=== PATIENT | female | born 1960 | race American Indian/Alaskan Native ===

== ENCOUNTER 2019-04-02 08:04 | Day surgery (SDC) | payer MEDICARE ==
[2019-04-02] MEDS ORDERED: LIDOCAINE MPF (2%) 20 MG/1 ML VIAL 5 ML ONE (09:00)
[2019-04-02] MEDS ORDERED: SODIUM CHLORIDE 0.9% 1000 ML 1,000 ML ONE (09:07)
--- NOTE | 2019-04-02 09:15 | Anesthesia Consultation ---
<ANTONIO FRYE - Last Filed: 04/02/19 09:12> Anesthesia Consult and Med Hx Date of service: 04/02/19 - Airway Anesthetic Teeth Evaluation: Good ROM Head & Neck: Adequate Mental/Hyoid Distance: Adequate Mallampati Class: Class III Intubation Access Assessment: Possibly Difficult - Pre-Operative Health Status ASA Pre-Surgery Classification: ASA3 Proposed Anesthetic Plan: MAC - Pulmonary Hx Smoking: No Hx Asthma: No Hx Respiratory Symptoms: No SOB: No COPD: No Home Oxygen Therapy: No Hx Pneumonia: No Hx Sleep Apnea: Yes - Cardiovascular System Hx Hypertension: Yes Hx Coronary Artery Disease: Yes ( [place] 2007 approx) Hx Heart Attack/AMI: Yes (stents in the heart) Hx Angina: No Hx Percutaneous Transluminal Coronary Angioplasty (PTCA): No Hx Pacemaker: No Hx Internal Defibrillator: Yes (Most be combo Pacemaker and AICD, EkG shows pacing at 60) Hx Valvular Heart Disease: Yes (TR) Hx Heart Murmur: Yes - Central Nervous System Hx Neuromuscular Disorder: No Hx Seizures: No CVA: Yes Hx Back Pain: Yes Hx Psychiatric Problems: No - Gastrointestinal Hx Ulcer: Yes (STOMACH AND INTESTIONAL) Hx Gastroesophageal Reflux Disease: Yes (MILD) - Endocrine Hx Renal Disease: No Hx End Stage Renal Disease: No Hx Cirrhosis: No Hx Liver Disease: No Hx Insulin Dependent Diabetes: Yes (ON SLIDING SCALE) Hx Non-Insulin Dependent Diabetes: No Hx Thyroid Disease: Yes Hx Hypothyroidism: Yes Hx Hyperthyroidism: No - Hematic Hx Anemia: Yes Hx Sickle Cell Disease: No - Other Systems Hx Alcohol Use: No Hx Substance Use: No Hx Cancer: No Hx Obesity: Yes <JOAN FLORES - Last Filed: 04/02/19 12:39> Anesthesia Consult and Med Hx - Additional Comments Anesthesia Medical History Comments: Received most recent cardiology notes and clearance from 01/2019. EF 25%, severe pulmonary HTN noted. OK to hold ASA/plavix x7 days (patient held for 4 days).
--- NOTE | 2019-04-02 09:16 | Anesthesia Day of Surgery ---
Anesthesia Day of Surgery - Day of Surgery Patient Examined: Yes Patient H&P Reviewed: Yes Patient is NPO: Yes Cardiac Clearance: Yes
[2019-04-02] MEDS ORDERED: SODIUM CHLORIDE 0.9% 1000 ML 1,000 ML IV SCH (09:30)
[2019-04-02] MEDS ORDERED: ETOMIDATE 20 MG/10 ML INJ IV ONE (10:32)
--- NOTE | 2019-04-02 11:35 | Short Stay Summary ---
Short Stay Documentation Date of service: 04/02/19 Narrative H&P: Pt is a 58 yo aaf with h/o JACLYN, cirrhosis, and intermittent hematochezia. See clinic note for further details (no changes) - History Past Medical History: other (see clinic note) Past Surgical History: Other (see clinic note) Social history: other (see clinic note) - Allergies and Medications Current Medications: Allergies Sulfa (Sulfonamide Antibiotics) Allergy (Unknown, Verified 07/17/13 11:06) Rash SWEET GUM POLLEN Allergy (Intermediate, Uncoded 12/01/18 14:51) Unknown Home Medications Medication Instructions Recorded Confirmed Last Taken Type Ipratropium [place] 1 tab PO DAILY 03/24/13 12/02/18 09/11/14 History Folic Acid 1 mg PO QDAY 03/25/13 12/02/18 09/11/14 History Insulin Lispro [HumaLOG VIAL] 30 units SQ PRN PRN 03/25/13 12/02/18 09/11/14 History Potassium 20 meq PO BID 03/25/13 12/02/18 09/11/14 History Furosemide [Lasix TAB] 80 mg PO BID tablet 09/14/14 12/02/18 Unknown Rx Insulin Regular, Human [HumuLIN R] 0 units SUB-Q ACHS units 09/14/14 12/02/18 Unknown Rx Calcium Carbonate/Vitamin D3 1 tab PO DAILY #30 tablet 10/31/14 12/02/18 Unknown Rx [Calcium 600-Vit D3 200 Tablet] Colesevelam [Welchol] 625 mg PO BID #60 tablet 10/31/14 12/02/18 Unknown Rx Hydroxychloroquine [Plaquenil] 200 mg PO BID #30 tablet 10/31/14 12/02/18 Unkno wn Rx Isosorb Dinit/Hydralazine [Bidil 1 each PO DAILY #60 tablet 10/31/14 12/02/18 Unknown Rx 20/37.5MG] Levothyroxine [Synthroid] 75 mcg PO DAILY #30 tablet 10/31/14 12/02/18 Unknown Rx Omeprazole [PriLOSEC] 20 mg PO PRN PRN #30 capsule. 10/31/14 12/02/18 Unknown Rx Sertraline [Zoloft] 100 mg PO DAILY #30 tablet 10/31/14 12/02/18 Unknown Rx azaTHIOprine [Azasan] 50 mg PO DAILY #60 tablet 10/31/14 12/02/18 Unknown Rx carvediloL [Coreg] 25 mg PO BID #60 tablet 10/31/14 12/02/18 Unknown Rx hydrOXYzine HCL [Atarax] 25 mg PO DAILY #30 tablet 10/31/14 12/02/18 Unknown Rx lisinopriL [Zestril TAB] 40 mg PO QDAY #30 tablet 10/31/14 12/02/18 Unknown Rx predniSONE [Deltasone] 5 mg PO QDAY #30 tablet 10/31/14 12/02/18 Unknown Rx ALBUTEROL Inhaler (OR & NICU) 2 puff INHALATION DAILY 12/02/18 12/02/18 Unknown History Aldactone 25 mg PO DAILY 12/02/18 12/02/18 Unknown History Ambien 5 mg PO HS 12/02/18 12/02/18 Unknown History Apresoline TAB 50 mg PO DAILY 12/02/18 12/02/18 Unknown History Aspirin BABY CHEW TAB 81 mg PO DAILY 12/02/18 12/02/18 Unknown History Entresto 24 - 26 mg 1 tab PO DAILY 12/02/18 12/02/18 Unknown History Farxiga 5 mg PO DAILY 12/02/18 12/02/18 Unknown History Metolazone 2.5 mg PO DAILY 12/02/18 12/02/18 Unknown History Pantoprazole 40 mg PO DAILY 12/02/18 12/02/18 Unknown History Plaquenil 200 mg PO DAILY 12/02/18 12/02/18 Unknown History Plavix 75 mg PO DAILY 12/02/18 12/02/18 Unknown History Pravastatin 20 mg PO DAILY 12/02/18 12/02/18 Unknown History Sitagliptin Phos/Metformin HCl 1 tab PO DAILY 12/02/18 12/02/18 Unknown History Zanaflex 4mg CAP 1 tab PO DAILY 12/02/18 12/02/18 Unknown History Active Medications Sodium Chloride (Nacl 0.9% 1000 Ml) 1,000 mls @ 50 mls/hr IV DIRECT RODOLFO - Physical exam General appearance: no acute distress Lungs: Clear to auscultation Heart: Regular rate Gastrointestinal: normal, obese - Brief post op/procedure progress note Date of procedure: 04/02/19 Pre-op diagnosis: JACLYN, cirrhosis, gi bleed Post-op diagnosis: other (gastritis; large sessile polyp in cecum) Procedure: 1. EGD 2. Colonoscopy with cecal polyp s/p EMR Anesthesia: MAC Findings: EGD: gastritis, hiatal hernia, grade I EV Surgeon: CELIA RAMACHANDRAN Estimated blood loss: minimal Pathology: list (Jar A - cecal polyp) Specimen disposition: to lab Condition: stable - Disposition Condition at discharge: Good Disposition: [id number] TO HOME OR SELFCARE Short Stay Discharge Plan Follow up with: ROBIN REYEZ MD [Primary Care Provider] - 7 Days
--- NOTE | 2019-04-02 11:38 | Operative Report ---
Operative Report Operative Report: Esophagogastroduodenoscopy Procedure Note Date of procedure: 04/02/2019 Endoscopist: Washington Vann Pre-op diagnosis/indication: Cirrhosis, Iron deficiency anemia Post-op diagnosis: Gastritis, hiatal hernia, Grade I esophageal varices MEDICATIONS: MAC COMPLICATIONS: No immediate complications ESTIMATED BLOOD LOSS:None DESCRIPTION OF PROCEDURE: After consent was obtained, the patient was placed in the left lateral decubitis position. The olympus endoscope was inserted into the patient's mouth under direct vision and advanced to the 2nd portion of the duodenum without difficulty. The patient tolerated the procedure well. The views of the mucosa were good. The patient's vital signs were monitored continuously throughout the procedure. FINDINGS: There were small (grade I) esophageal varices in the distal esophagus without high risk bleeding stigmata. There was a non-obstructing, widely patent B ring at the GE junction. Moderate sized hiatal hernia. Mild erythematous mucosa in the antrum of the stomach. Otherwise the stomach appeared normal. The duodenum appeared normal. IMPRESSION: 1. Grade I esophageal varices without bleeding stigmata 2. Mild gastritis 3. Non-obstructing/widely patent B ring in lower esophagus RECOMMENDATIONS: -continue current medications -follow-up in GI clinic as scheduled
--- NOTE | 2019-04-02 11:44 | Operative Report ---
Operative Report Operative Report: Colonoscopy Procedure Note with submucosal injection, polypectomy and clip placement Date of procedure: 04/02/2019 Endoscopist: Washington Vann Pre-op diagnosis/indication: Iron deficiency anemia, Hematochezia Post-op diagnosis: Large sessile polyp in cecum; diverticulosis MEDICATIONS: MAC COMPLICATIONS: No immediate complications ESTIMATED BLOOD LOSS: Minimal DESCRIPTION OF PROCEDURE: After consent was obtained, the patient was placed in the left lateral decubitis position. The olympus colonoscope was inserted into the rectum under direct vision, and advanced to the cecum without difficulty. The quality of prep was fair. The patient tolerated the procedure well. The patient's vital signs were monitored continuously throughout the procedure. FINDINGS: There was an ~2 cm flat/sessile polyp in the cecum. Preparation was made for resection. Saline was injected to raise the polyp. The polyp was removed en bloc with hot snare polypectomy. Three clips were placed to close the mucosal defect. Moderate to severe diverticulosis in the left side of the colon. Internal hemorrhoids were visualized on retroflexion view. IMPRESSION: 1. Large sessile polyp in the cecum s/p endoscopic mucosal resection as above. 2. Diverticulosis RECOMMENDATIONS: -follow-up pathology -can restart aspirin tomorrow and plavix in 5 days if no signs of bleeding; avoid all other nsaid's -high fiber diet daily -repeat colonoscopy for surveillance in 3-6 months based on pathology results -follow-up in GI clinic in 1 month or as previously scheduled
--- NOTE | 2019-04-02 13:02 | Post Anesthesia Evaluation ---
- Post Anesthesia Evaluation Patient Participated: Yes Airway Patent: Yes Stable Respiratory Function: Yes Nausea/Vomiting: No Temp > 96.8F: Yes Pain Manageable: Yes Adequeate Hydration: Yes Anesthesia Complications: No Other Comments: Recover RN spoke with [employer] rep regarding AICD since magnet was placed during procedure. Per rep, device returns to regular programmed settings settings immediately once magnet is removed. No need to reprogram. Patient d/c'd to home.
[2019-04-02 13:16] VITALS: BP 120/66
== END 2019-04-02 08:05 | disposition home or self-care (01) ==
LOC: GIO 08:04
PROVIDERS: ATTEND Internal Medicine Gastroenterology
DX: D50.9 Iron deficiency anemia, unspecified (principal); D12.0 Benign neoplasm of cecum; K92.1 Melena; K57.30 Diverticulosis of large intestine without perforation or abscess without bleeding; K64.8 Other hemorrhoids; K74.69 Other cirrhosis of liver; K44.9 Diaphragmatic hernia without obstruction or gangrene; K29.70 Gastritis, unspecified, without bleeding; I85.00 Esophageal varices without bleeding; E11.65 Type 2 diabetes mellitus with hyperglycemia; E03.9 Hypothyroidism, unspecified; I11.0 Hypertensive heart disease with heart failure; I50.9 Heart failure, unspecified; E78.5 Hyperlipidemia, unspecified; I25.10 Atherosclerotic heart disease of native coronary artery without angina pectoris; G47.30 Sleep apnea, unspecified; K21.9 Gastro-esophageal reflux disease without esophagitis; E66.9 Obesity, unspecified; M19.90 Unspecified osteoarthritis, unspecified site; F32.9 Major depressive disorder, single episode, unspecified; F41.9 Anxiety disorder, unspecified; Z88.2 Allergy status to sulfonamides; Z79.899 Other long term (current) drug therapy; Z79.4 Long term (current) use of insulin; Z98.49 Cataract extraction status, unspecified eye; Z95.5 Presence of coronary angioplasty implant and graft; Z68.34 Body mass index [BMI] 34.0-34.9, adult; Z98.891 History of uterine scar from previous surgery; Z98.890 Other specified postprocedural states; Z95.0 Presence of cardiac pacemaker; Z86.73 Personal history of transient ischemic attack (TIA), and cerebral infarction without residual deficits
CPT/HCPCS: 43235; 45381; 45385; 82962; 88305; J7030

== ENCOUNTER 2019-04-03 12:36 | Inpatient (IN) | payer MEDICARE ==
[2019-04-03] MEDS ORDERED: MORPHINE 4 MG/1 ML INJ IV ONE (13:52)
--- NOTE | 2019-04-03 14:04 | Gastroenterology Consultation ---
History of Present Illness - Reason for Consult Consult date: 04/03/19 GI Bleed Requesting physician: ALEX SKELTON - History of Present Illness The patient is a 58 yo female who underwent an EGD/colonoscopy 04/[address] Vann for mild iron deficiency and a hx of ESLD. She had minimal varices but had significant L-sided diverticular disease as well as a 2cm cecum polyp that was removed with a hot snare and clipped afterwards. She did well yesterday, but woke up this AM with multiple bouts of hematochezia. She has fatigue and pre- syncope, but no tamar hypotension in the ER. She estimates about 5 BMs so far today. She has cramps in the BLQ when about to have a stool, but no constant pain, and no fevers, emesis, or abdominal distention. The patient has ASA and plavix on her med profile, but is not aware of that, and doesn't think she is on either in the last few days (but has over 15 medications listed, and does not appear to know any of them). Past History Past Medical History: acute NM (2006 per old records), anemia, CAD (Hx of NM/stents; Cards is Georgie Landeros), COPD, diabetes, GERD, heart failure (AICD), hypertension, hyperlipidemia, liver disease, other (Obesity, ARACELI) Past Surgical History: Other (PM/AICD) Medications and Allergies Allergies Allergy/AdvReac Type Severity Reaction Status Date / Time Sulfa (Sulfonamide Allergy Unknown Rash Verified 07/17/13 11:06 Antibiotics) SWEET GUM POLLEN Allergy Intermediate Unknown Uncoded 12/01/18 14:51 Home Medications Medication Instructions Recorded Confirmed Last Taken Type Ipratropium [place] 1 tab PO DAILY 03/24/13 12/02/18 09/11/14 History Folic Acid 1 mg PO QDAY 03/25/13 12/02/18 09/11/14 History Insulin Lispro [HumaLOG VIAL] 30 units SQ PRN PRN 03/25/13 12/02/18 09/11/14 History Potassium 20 meq PO BID 03/25/13 12/02/18 09/11/14 History Furosemide [Lasix TAB] 80 mg PO BID tablet 09/14/14 12/02/18 Unknown Rx Insulin Regular, Human [HumuLIN R] 0 units SUB-Q ACHS units 09/14/14 12/02/18 Unknown Rx Calcium Carbonate/Vitamin D3 1 tab PO DAILY #30 tablet 10/31/14 12/02/18 Unknown Rx [Calcium 600-Vit D3 200 Tablet] Colesevelam [Welchol] 625 mg PO BID #60 tablet 10/31/14 12/02/18 Unknown Rx Hydroxychloroquine [Plaquenil] 200 mg PO BID #30 tablet 10/31/14 12/02/18 Unknown Rx Isosorb Dinit/Hydralazine [Bidil 1 each PO DAILY #60 tablet 10/31/14 12/02/18 Unknown Rx 20/37.5MG] Levothyroxine [Synthroid] 75 mcg PO DAILY #30 tablet 10/31/14 12/02/18 Unknown Rx Omeprazole [PriLOSEC] 20 mg PO PRN PRN #30 capsule. 10/31/14 12/02/18 Unknown Rx Sertraline [Zoloft] 100 mg PO DAILY #30 tablet 10/31/14 12/02/18 Unknown Rx azaTHIOprine [Azasan] 50 mg PO DAILY #60 tablet 10/31/14 12/02/18 Unknown Rx carvediloL [Coreg] 25 mg PO BID #60 tablet 10/31/14 12/02/18 Unknown Rx hydrOXYzine HCL [Atarax] 25 mg PO DAILY #30 tablet 10/31/14 12/02/18 Unknown Rx lisinopriL [Zestril TAB] 40 mg PO QDAY #30 tablet 10/31/14 12/02/18 Unknown Rx predniSONE [Deltasone] 5 mg PO QDAY #30 tablet 10/31/14 12/02/18 Unknown Rx ALBUTEROL Inhaler (OR & NICU) 2 puff INHALATION DAILY 12/02/18 12/02/18 Unknown History Aldactone 25 mg PO DAILY 12/02/18 12/02/18 Unknown History Ambien 5 mg PO HS 12/02/18 12/02/18 Unknown History Apresoline TAB 50 mg PO DAILY 12/02/18 12/02/18 Unknown History Aspirin BABY CHEW TAB 81 mg PO DAILY 12/02/18 12/02/18 Unknown History Entresto 24 - 26 mg 1 tab PO DAILY 12/02/18 12/02/18 Unknown History Farxiga 5 mg PO DAILY 12/02/18 12/02/18 Unknown History Metolazone 2.5 mg PO DAILY 12/02/18 12/02/18 Unknown History Pantoprazole 40 mg PO DAILY 12/02/18 12/02/18 Unknown History Plaquenil 200 mg PO DAILY 12/02/18 12/02/18 Unknown History Plavix 75 mg PO DAILY 12/02/18 12/02/18 Unknown History Pravastatin 20 mg PO DAILY 12/02/18 12/02/18 Unknown History Sitagliptin Phos/Metformin HCl 1 tab PO DAILY 12/02/18 12/02/18 Unknown History Zanaflex 4mg CAP 1 tab PO DAILY 12/02/18 12/02/18 Unknown History Review of Systems - Review of Systems All systems: negative (as noted in the HPI.) Exam - Constitutional Vital Signs: Temp Pulse Resp BP Pulse Ox 66 21 127/75 100 04/03/19 13:37 04/03/19 13:37 04/03/19 13:37 04/03/19 13:37 General appearance: no acute distress - EENT Eyes: PERRL, EOM intact ENT: hearing intact, poor dentition, no thrush - Neck Neck: supple, normal ROM - Respiratory Respiratory effort: normal Respiratory: bilateral: CTA - Cardiovascular Rhythm: regular Heart Sounds: Present: S1 & S2 Extremities: no ischemia, No edema - Gastrointestinal General gastrointestinal: Present: soft, tender (Subjective guarding but no peritoneal signs, distention, or pain when distracted), non-distended - Integumentary Integumentary: Present: clear, warm - Neurologic Neurological: alert and oriented x3 Assessment and Plan - Patient Problems (1) GI bleed Status: Acute Plan to address problem: - EGD/Colon 04/02 with Grade I esophageal varices, colon tics on L side, and 2cm polyp in cecum (removed; endoclip x 3). - Unclear if patient continuing ASA and plavix, but also has mild ESLD (platelets 135 in clinic and INR 1.1 in clinic). - Likely post-polypectomy bleed, though tics possible. - Would recommend empiric FFP, and protonix IV (Q24, not gtt since no ulcer or severe varices). - CTA ordered. - Given cirrhosis, and size of mucosal defect, fell the best option at this point, if bleeding in the cecum, would be IR/embolization, and we have contacted Interventional Radiology. - Would recommend transfusion if hct < 25. - Platelet transfusion may be of benefit if less than 100K, though less value than FFP. - If vascular intervention unsuccessful, then repeat endoscopy, or surgical intervention, will be needed; however, it may resolve on its own. - All anticoagulation should be stopped.
--- NOTE | 2019-04-03 14:07 | Emergency Department Report ---
HPI - General Chief Complaint: GI Bleed Time Seen by Provider: 04/03/19 13:23 - HPI HPI: 58 yo ROSSY Goodman presents to the emergency department via EMS from home with the complaint of abdominal pain and heavy rectal bleeding since late morning. She had an outpatient colonsocopy yesterday done by Dr Vann here at [facility] secondary to some hematochezia she had been having. She had a few polyps removed including a cecal polyp and was discharged home. She had no complaints the rest of the day yesterday and says she woke up this AM feeling fine. However, the symptoms began a few hours after waking. She complains of 10/10 generalized abd pain. She has been having rectal bleeding with clots that has soaked her clothes and the gurney. She has a past medical history that also includes hypertension, Lupus, DM. She has not taken anything for her symptoms prior to presentation today. ED Past Medical Hx - Past Medical History Previous Medical History?: Yes Hx Hypertension: Yes Hx Heart Attack/AMI: Yes (stents in the heart) Hx Congestive Heart Failure: Yes Hx Diabetes: Yes Hx GERD: Yes Hx Liver Disease: No Hx Renal Disease: No Hx Sickle Cell Disease: No Hx Arthritis: Yes (IN ALL JOINTS/NO PAIN NOTED AT THIS TIME) Hx Seizures: No Hx Asthma: No Hx COPD: No Additional medical history: Lupus - Surgical History Past Surgical History?: Yes Hx Pacemaker: No Hx Internal Defibrillator: Yes (Most be combo Pacemaker and AICD, EkG shows pacing at 60) Additional Surgical History: - Social History Smoking Status: Never Smoker Substance Use Type: None - Medications Home Medications: Home Medications Medication Instructions Recorded Confirmed Last Taken Type Ipratropium [place] 1 tab PO DAILY 03/24/13 12/02/18 09/11/14 History Folic Acid 1 mg PO QDAY 03/25/13 12/02/18 09/11/14 History Insulin Lispro [HumaLOG VIAL] 30 units SQ PRN PRN 03/25/13 12/02/18 09/11/14 History Potassium 20 meq PO BID 03/25/13 12/02/18 09/11/14 History Furosemide [Lasix TAB] 80 mg PO BID tablet 09/14/14 12/02/18 Unknown Rx Insulin Regular, Human [HumuLIN R] 0 units SUB-Q ACHS units 09/14/14 12/02/18 Unknown Rx Calcium Carbonate/Vitamin D3 1 tab PO DAILY #30 tablet 10/31/14 12/02/18 Unknown Rx [Calcium 600-Vit D3 200 Tablet] Colesevelam [Welchol] 625 mg PO BID #60 tablet 10/31/14 12/02/18 Unknown Rx Hydroxychloroquine [Plaquenil] 200 mg PO BID #30 tablet 10/31/14 12/02/18 Unknown Rx Isosorb Dinit/Hydralazine [Bidil 1 each PO DAILY #60 tablet 10/31/14 12/02/18 Unknown Rx 20/37.5MG] Levothyroxine [Synthroid] 75 mcg PO DAILY #30 tablet 10/31/14 12/02/18 Unknown Rx Omeprazole [PriLOSEC] 20 mg PO PRN PRN #30 capsule. 10/31/14 12/02/18 Unknown Rx Sertraline [Zoloft] 100 mg PO DAILY #30 tablet 10/31/14 12/02/18 Unknown Rx azaTHIOprine [Azasan] 50 mg PO DAILY #60 tablet 10/31/14 12/02/18 Unknown Rx carvediloL [Coreg] 25 mg PO BID #60 tablet 10/31/14 12/02/18 Unknown Rx hydrOXYzine HCL [Atarax] 25 mg PO DAILY #30 tablet 10/31/14 12/02/18 Unknown Rx lisinopriL [Zestril TAB] 40 mg PO QDAY #30 tablet 10/31/14 12/02/18 Unknown Rx predniSONE [Deltasone] 5 mg PO QDAY #30 tablet 10/31/14 12/02/18 Unknown Rx ALBUTEROL Inhaler (OR & NICU) 2 puff INHALATION DAILY 12/02/18 12/02/18 Unknown History Aldactone 25 mg PO DAILY 12/02/18 12/02/18 Unknown History Ambien 5 mg PO HS 12/02/18 12/02/18 Unknown History Apresoline TAB 50 mg PO DAILY 12/02/18 12/02/18 Unknown History Aspirin BABY CHEW TAB 81 mg PO DAILY 12/02/18 12/02/18 Unknown History Entresto 24 - 26 mg 1 tab PO DAILY 12/02/18 12/02/18 Unknown History Farxiga 5 mg PO DAILY 12/02/18 12/02/18 Unknown History Metolazone 2.5 mg PO DAILY 12/02/18 12/02/18 Unknown History Pantoprazole 40 mg PO DAILY 12/02/18 12/02/18 Unknown History Plaquenil 200 mg PO DAILY 12/02/18 12/02/18 Unknown History Plavix 75 mg PO DAILY 12/02/18 12/02/18 Unknown History Pravastatin 20 mg PO DAILY 12/02/18 12/02/18 Unknown History Sitagliptin Phos/Metformin HCl 1 tab PO DAILY 12/02/18 12/02/18 Unknown History Zanaflex 4mg CAP 1 tab PO DAILY 12/02/18 12/02/18 Unknown History ED Review of Systems ROS: Stated complaint: RECTAL BLEED Other details as noted in HPI Comment: All other systems reviewed and negative Constitutional: denies: chills, fever Eyes: denies: eye pain, vision change ENT: denies: ear pain, throat pain Respiratory: denies: cough, shortness of breath Cardiovascular: denies: chest pain, palpitations Gastrointestinal: abdominal pain, hematochezia. denies: vomiting Genitourinary: denies: dysuria, discharge Musculoskeletal: denies: back pain, arthralgia Skin: denies: rash, lesions Neurological: denies: headache, weakness Physical Exam - Physical Exam Vital Signs: Vital Signs 04/03/19 13:37 Pulse Rate 66 Respiratory 21 Rate Blood Pressure 127/75 [Right] O2 Sat by Pulse 100 Oximetry Physical Exam: GENERAL: The patient is well-developed well-nourished. HEENT: Normocephalic. Atraumatic. Patient has moist mucous membranes. EYES: Extraocular motions are intact. NECK: Supple. Trachea is midline. CHEST/LUNGS: Clear to auscultation. There is no respiratory distress noted. HEART/CARDIOVASCULAR: Regular. There is no tachycardia. ABDOMEN: Abdomen is soft. There is generalized abdominal tenderness to palpation. No guarding. Patient has normal bowel sounds. Obese habitus. SKIN: Skin is warm and dry. NEURO: The patient is awake, alert, and oriented. The patient is cooperative. The patient has no focal neurologic deficits. The patient has normal speech. MUSCULOSKELETAL: There is no tenderness or deformity. There is no evidence of acute injury. RECTAL: There is a moderate to large amount of hematochezia. ED Course Vital Signs 04/03/19 13:37 Pulse Rate 66 Respiratory 21 Rate Blood Pressure 127/75 [Right] O2 Sat by Pulse 100 Oximetry - Consultations Consultation #1: I spoke with the stamping bench die maker credit and loan collections supervisor, Dr. moreno, as soon as patient came to the emergency department. Dr. Moreno came down to the ER and saw the patient. He has requested for a CT angiography of the abdomen and pelvis to be done and if there is a focus of hemorrhage then the vascular surgeon, Dr. Her, may go in for embolization. He has also requested for the patient received 2 units of fresh frozen plasma. 04/03/19 17:49 ED Medical Decision Making - Lab Data Result diagrams: 04/03/19 13:50 04/03/19 13:50 - Radiology Data Radiology results: report reviewed CT angio abdomen pelvis INDICATION / CLINICAL INFORMATION: GI bleed s/p colonoscopy. TECHNIQUE: Axial CT images were obtained after injection of Omnipaque 300, 100 cc IV contrast using CTA protocol. 3 plane MIP / 3D reconstructions were produced. All CT scans at this location are performed using CT dose reduction for ALARA by means of automated exposure control. COMPARISON: None available. CTA abdomen: The aorta is normal in caliber. The mesenteric vessels and renal arteries are widely patent. No active GI bleeding site is identified Evaluation the parenchymal organs demonstrates a cirrhotic configuration of the liver and benign-appearing renal cysts. The spleen is not enlarged. Ascites is moderate. Negative for localized fluid collection. Calcified gallstones are noted. Endoscopic clips are noted at the proximal transverse colon where there is localized thickening. No active bleeding site is identified. CTA PELVIS: The iliac vessels are widely patent. No pelvic bleeding site is identified. Pelvic fluid is moderate. Sigmoid diverticula are noninflamed. IMPRESSION: 1. Negative for active bleeding site or significant vascular stenosis. 2. Cirrhosis with moderate ascites. 3. Endoscopic clips localized thickening at present biopsy site at the proximal transverse colon. 4. Calcified gallstones. - Medical Decision Making This patient presents to the emergency department with abdominal pain and heavy rectal bleeding with hematochezia one day after having a colonoscopy with polypectomy. Patient does have a moderate to large amount of rectal bleeding seen. She has abdominal tenderness to palpation of the abdomen is soft and nondistended. Patient's labs came back showing a hemoglobin of 8.6 which is decreased from her baseline. GI asked for 2 units of fresh frozen plasma and vascular has ordered 2 units of packed red blood cells for transfusion. CT angiography of the abdomen and pelvis does not show any area of current hemorrhage. She will be admitted to the hospital for further evaluation and treatment and was accepted for admission by the hospitalist, Dr. Ronquillo. - Differential Diagnosis diverticulosis, status post polypectomy, malignancy Critical Care Time: Yes Critical care time in (mins) excluding proc time.: 31 Critical care attestation.: If time is entered above; I have spent that time in minutes in the direct care of this critically ill patient, excluding procedure time. Critical care time was spent on this patient and doing her initial evaluation, multiple re-evaluations, ordering an interpretation of labs and imaging, ordering of fresh frozen plasma for transfusion, consultation and discussion with gastroenterology and vascular surgery, multiple discussions with the patient and her family. Critical Care Time: 31 minutes ED Disposition Clinical Impression: Symptomatic anemia GI bleed Qualifiers: GI bleed type/associated pathology: unspecified gastrointestinal hemorrhage type Qualified Code(s): K92.2 - Gastrointestinal hemorrhage, unspecified Anemia Qualifiers: Other causes of anemia: acute posthemorrhagic Qualified Code(s): D62 - Acute posthemorrhagic anemia Abdominal pain Qualifiers: Abdominal location: generalized Qualified Code(s): R10.84 - Generalized abdominal pain Disposition: DC-09 OP ADMIT IP TO THIS HOSP Is pt being admited?: Yes Condition: Fair Referrals: SINA LOPEZ,NILA ROMANO MD [Primary Care Provider] - 3-5 Days Forms: Accompanied Note Time of Disposition: 16:46
[2019-04-03 14:16] LABS: Basophils % (Auto) 0.3 % (0.0-1.8); Eosinophils # (Auto) 0.1 K/mm3 (0.0-0.4); Eosinophils % (Auto) 1.5 % (0.0-4.3); Hematocrit 26.9 % (30.3-42.9); Hemoglobin 8.9 gm/dl (10.1-14.3); Lymphocytes % (Auto) 14.7 % (13.4-35.0); Mean Corpuscular HGB Conc 33 % (30-34); Mean Corpuscular Volume 95 fl (79-97); Monocytes # (Auto) 0.4 K/mm3 (0.0-0.8); Monocytes % (Auto) 6.3 % (0.0-7.3); Platelet Count 141 K/mm3 (140-440); Red Blood Count 2.83 M/mm3 (3.65-5.03); Red Cell Distribution Width 14.8 % (13.2-15.2)
[2019-04-03] MEDS ORDERED: SODIUM CHLORIDE 0.9% 500 ML 500 ML IV ONE (14:18)
[2019-04-03 14:27] LABS: INR 1.2 (0.87-1.13)
[2019-04-03 14:28] LABS: Partial Thromboplastin Time 26.9 Sec. (24.2-36.6)
[2019-04-03 14:35] LABS: BUN/Creatinine Ratio 16; Blood Urea Nitrogen 16 mg/dL (7-17); Calcium 8.3 mg/dL (8.4-10.2); Hemolysis Index 7
[2019-04-03 14:39] LABS: Alanine Aminotransferase 12 units/L (7-56); Albumin 3.1 g/dL (3.9-5)
[2019-04-03 14:40] LABS: Bilirubin,Direct < 0.2 mg/dL (0-0.2)
[2019-04-03] MEDS ORDERED: SODIUM CHLORIDE 0.9% 500 ML 500 ML IV NR (14:54)
[2019-04-03] MEDS ORDERED: ONDANSETRON 4 MG/2 ML INJ IV ONE (15:18)
[2019-04-03] MEDS ORDERED: HEPARIN/NS 5000 UNIT/500ML 0 ML IR ONE (16:04)
[2019-04-03] MEDS ORDERED: SODIUM CHLORIDE 0.9% 500 ML 0 ML ONE (16:04)
[2019-04-03] MEDS ORDERED: LIDOCAINE 1%/EPINEPHRINE 1:100,000 VIAL (20 ML) INFILTRATI ONE (16:04)
--- NOTE | 2019-04-03 16:50 | Consultation ---
History of Present Illness - Reason for Consult Consult date: 04/03/19 GI bleed - History of Present Illness Patient with a history of cirrhosis who underwent a colonoscopy yesterday with removal of a 2 cm sessile polyp from the cecum. Post procedure, the patient did well. She was restarted on her anticoagulation and 11:00 this morning, the patient experienced a lower GI bleeding. She presented to the emergency department with active bleeding which has now stopped. Patient was taken to the CT scan with a CTA in both arterial and delayed phases to determine if there was additional. No additional bleeding was identified. Patient is mentally intact with no specific complaints. Past History Past Medical History: acute [place] (2006 per old records), anemia, CAD (Hx of [place]/stents; Cards is Georgie Landeros), COPD, diabetes, GERD, heart failure (AI CD), hypertension, hyperlipidemia, liver disease, other (Obesity, ARACELI, cirrhosis) Past Surgical History: Other (PM/AICD) Medications and Allergies Allergies Allergy/AdvReac Type Severity Reaction Status Date / Time Sulfa (Sulfonamide Allergy Unknown Rash Verified 07/17/13 11:06 Antibiotics) SWEET GUM POLLEN Allergy Intermediate Unknown Uncoded 12/01/18 14:51 Home Medications Medication Instructions Recorded Confirmed Last Taken Type Ipratropium [place] 1 tab PO DAILY 03/24/13 12/02/18 09/11/14 History Folic Acid 1 mg PO QDAY 03/25/13 12/02/18 09/11/14 History Insulin Lispro [HumaLOG VIAL] 30 units SQ PRN PRN 03/25/13 12/02/18 09/11/14 History Potassium 20 meq PO BID 03/25/13 12/02/18 09/11/14 History Furosemide [Lasix TAB] 80 mg PO BID tablet 09/14/14 12/02/18 Unknown Rx Insulin Regular, Human [HumuLIN R] 0 units SUB-Q ACHS units 09/14/14 12/02/18 Unknown Rx Calcium Carbonate/Vitamin D3 1 tab PO DAILY #30 tablet 10/31/14 12/02/18 Unknown Rx [Calcium 600-Vit D3 200 Tablet] Colesevelam [Welchol] 625 mg PO BID #60 tablet 10/31/14 12/02/18 Unknown Rx Hydroxychloroquine [Plaquenil] 200 mg PO BID #30 tablet 10/31/14 12/02/18 Unknown Rx Isosorb Dinit/Hydralazine [Bidil 1 each PO DAILY #60 tablet 10/31/14 12/02/18 Unknown Rx 20/37.5MG] Levothyroxine [Synthroid] 75 mcg PO DAILY #30 tablet 10/31/14 12/02/18 Unknown Rx Omeprazole [PriLOSEC] 20 mg PO PRN PRN #30 capsule. 10/31/14 12/02/18 Unknown Rx Sertraline [Zoloft] 100 mg PO DAILY #30 tablet 10/31/14 12/02/18 Unknown Rx azaTHIOprine [Azasan] 50 mg PO DAILY #60 tablet 10/31/14 12/02/18 Unknown Rx carvediloL [Coreg] 25 mg PO BID #60 tablet 10/31/14 12/02/18 Unknown Rx hydrOXYzine HCL [Atarax] 25 mg PO DAILY #30 tablet 10/31/14 12/02/18 Unknown Rx lisinopriL [Zestril TAB] 40 mg PO QDAY #30 tablet 10/31/14 12/02/18 Unknown Rx predniSONE [Deltasone] 5 mg PO QDAY #30 tablet 10/31/14 12/02/18 Unknown Rx ALBUTEROL Inhaler (OR & NICU) 2 puff INHALATION DAILY 12/02/18 12/02/18 Unknown History Aldactone 25 mg PO DAILY 12/02/18 12/02/18 Unknown History Ambien 5 mg PO HS 12/02/18 12/02/18 Unknown History Apresoline TAB 50 mg PO DAILY 12/02/18 12/02/18 Unknown History Aspirin BABY CHEW TAB 81 mg PO DAILY 12/02/18 12/02/18 Unknown History Entresto 24 - 26 mg 1 tab PO DAILY 12/02/18 12/02/18 Unknown History Farxiga 5 mg PO DAILY 12/02/18 12/02/18 Unknown History Metolazone 2.5 mg PO DAILY 12/02/18 12/02/18 Unknown History Pantoprazole 40 mg PO DAILY 12/02/18 12/02/18 Unknown History Plaquenil 200 mg PO DAILY 12/02/18 12/02/18 Unknown History Plavix 75 mg PO DAILY 12/02/18 12/02/18 Unknown History Pravastatin 20 mg PO DAILY 12/02/18 12/02/18 Unknown History Sitagliptin Phos/Metformin HCl 1 tab PO DAILY 12/02/18 12/02/18 Unknown History Zanaflex 4mg CAP 1 tab PO DAILY 12/02/18 12/02/18 Unknown History Active Meds: Active Medications Sodium Chloride (Nacl 0.9% 500 Ml) 500 mls @ 0 mls/hr IV ONCE NR Stop: 04/03/19 23:59 Review of Systems All systems: negative Exam - Constitutional Vitals: Temp Pulse Resp BP Pulse Ox 73 15 158/81 96 04/03/19 15:31 04/03/19 15:31 04/03/19 15:31 04/03/19 15:31 General appearance: Present: no acute distress - EENT Eyes: Present: EOM intact ENT: hearing intact - Neck Neck: Present: supple, normal ROM - Respiratory Respiratory effort: normal - Abdominal General gastrointestinal: Present: soft, distended - Rectal Rectal Exam: deferred - Integumentary Integumentary: Present: clear - Psychiatric Psychiatric: appropriate mood/affect, cooperative Results - Labs CBC & Chem 7: 04/03/19 13:50 04/03/19 13:50 Labs: Abnormal lab results 04/03/19 04/03/19 04/03/19 Range/Units 13:50 13:50 13:50 RBC 2.83 L (3.65-5.03) M/mm3 Hgb 8.9 L (10.1-14.3) gm/dl Hct 26.9 L (30.3-42.9) % Lymph # 1.0 L (1.2-5.4) K/mm3 Seg Neutrophils % 77.2 H (40.0-70.0) % PT 15.4 H (12.2-14.9) Sec. INR 1.20 H (0.87-1.13) Potassium 3.3 L (3.6-5.0) mmol/L Chloride 107.5 H (98-107) mmol/L Carbon Dioxide 20 L (22-30) mmol/L Glucose 105 H (65-100) mg/dL Calcium 8.3 L (8.4-10.2) mg/dL Albumin (3.9-5) g/dL Crossmatch 04/03/19 04/03/19 Range/Units 13:50 13:50 RBC (3.65-5.03) M/mm3 Hgb (10.1-14.3) gm/dl Hct (30.3-42.9) % Lymph # (1.2-5.4) K/mm3 Seg Neutrophils % (40.0-70.0) % PT (12.2-14.9) Sec. INR (0.87-1.13) Potassium (3.6-5.0) mmol/L Chloride (98-107) mmol/L Carbon Dioxide (22-30) mmol/L Glucose (65-100) mg/dL Calcium (8.4-10.2) mg/dL Albumin 3.1 L (3.9-5) g/dL Crossmatch See Detail - Imaging and Cardiology CT scan - abdomen: image reviewed CT scan - pelvis: image reviewed Assessment and Plan Following review of the patient's CT of the abdomen and pelvis and both arterial and delayed phases, no active bleeding was identified. Clinically, the patient is stable. She will be transfused 2 units of packed red blood cells given her significant cardiac history and lower GI bleed. Would recommend holding anticoagulation for several days prior to resumption. If there is recurrently bleeding, would recommend repeat CTA of the abdomen and pelvis and arterial and venous stasis at the time of bleeding.
--- NOTE | 2019-04-03 17:08 | Cat Scan Report ---
CT angio abdomen pelvis INDICATION / CLINICAL INFORMATION: GI bleed s/p colonoscopy. TECHNIQUE: Axial CT images were obtained after injection of Omnipaque 300, 100 cc IV contrast using CTA protocol . 3 plane MIP / 3D reconstructions were produced. All CT scans at this location are performed using C T dose reduction for ALARA by means of automated exposure control. COMPARISON: None available. CTA abdomen: The aorta is normal in caliber. The mesenteric vessels and renal arteries are widely pat ent. No active GI bleeding site is identified Evaluation the parenchymal organs demonstrates a cirrhotic configuration of the liver and benign-appe aring renal cysts. The spleen is not enlarged. Ascites is moderate. Negative for localized fluid collection. Calcified gallstones are noted. Endoscopic clips are noted at the proximal transverse colon where there is localized thickening. No a ctive bleeding site is identified. CTA PELVIS: The iliac vessels are widely patent. No pelvic bleeding site is identified. Pelvic fluid is moderate. Sigmoid diverticula are noninflamed. IMPRESSION: 1. Negative for active bleeding site or significant vascular stenosis. 2. Cirrhosis with moderate ascites. 3. Endoscopic clips localized thickening at present biopsy site at the proximal transverse colon. 4. Calcified gallstones. Signer Name: True Hernandez MD Signed: 04/03/2019 5:04 PM Workstation Name: [id number]
--- NOTE | 2019-04-04 00:32 | History and Physical Report ---
History of Present Illness Date of examination: 04/04/19 Date of admission: 04/03/19 16:46 Chief complaint: Lower GI bleed since yesterday History of present illness: Examined 58-year-old -[place] female with multiple medical problems including insulin-dependent diabetes hypothyroidism hypertension lupus and hyperlipidemia comes in for lower GI bleed from yesterday. Patient had colonoscopy and a polyp was removed and rectal discharge from the colonoscopy suite. Patient had lower GI bleeding in the past few weeks off and on. After the procedure patient continues to have mild to moderate bleeding-bright red blood and blood clots. Patient feels weak and lightheaded. No shortness of breath. No chest pain. Past Medical History Previous Medical History?: Yes Hypertension: Yes Heart Attack/AMI: Yes (stents in the heart) Congestive Heart Failure: Yes Diabetes: Yes GERD: Yes Arthritis: Yes (IN ALL JOINTS/NO PAIN NOTED AT THIS TIME) Additional medical history: Lupus Surgical History Past Surgical History?: Yes Pacemaker: No Internal Defibrillator: Yes (Most be combo Pacemaker and AICD, EkG shows pacing at 60) Additional Surgical History: Social History Smoking Status: Never Smoker Substance Use Type: None Family history Htn Schedule a wrist - Medicationsecondary to change in her management will calls Home Medications: Home Medications Medication Instructions Recorded Confirmed Last Taken Type Ipratropium Kake 1 tab PO DAILY 03/24/13 12/02/18 09/11/14 History Folic Acid 1 mg PO QDAY 03/25/13 12/02/18 09/11/14 History Insulin Lispro [HumaLOG VIAL] 30 units SQ PRN PRN 03/25/13 12/02/18 09/11/14 History Potassium 20 meq PO BID 03/25/13 12/02/18 09/11/14 History Furosemide [Lasix TAB] 80 mg PO BID tablet 09/14/14 12/02/18 Unknown Rx Insulin Regular, Human [HumuLIN R] 0 units SUB-Q ACHS units 09/14/14 12/02/18 Unknown Rx Calcium Carbonate/Vitamin D3 1 tab PO DAILY #30 tablet 10/31/14 12/02/18 Unknown Rx [Calcium 600-Vit D3 200 Tablet] Colesevelam [Welchol] 625 mg PO BID #60 tablet 10/31/14 12/02/18 Unknown Rx Hydroxychloroquine [Plaquenil] 200 mg PO BID #30 tablet 10/31/14 12/02/18 Unknown Rx Isosorb Dinit/Hydralazine [Bidil 1 each PO DAILY #60 tablet 10/31/14 12/02/18 Unknown Rx 20/37.5MG] Levothyroxine [Synthroid] 75 mcg PO DAILY #30 tablet 10/31/14 12/02/18 Unknown Rx Omeprazole [PriLOSEC] 20 mg PO PRN PRN #30 capsule. 10/31/14 12/02/18 Unknown Rx Sertraline [Zoloft] 100 mg PO DAILY #30 tablet 10/31/14 12/02/18 Unknown Rx azaTHIOprine [Azasan] 50 mg PO DAILY #60 tablet 10/31/14 12/02/18 Unknown Rx carvediloL [Coreg] 25 mg PO BID #60 tablet 10/31/14 12/02/18 Unknown Rx hydrOXYzine HCL [Atarax] 25 mg PO DAILY #30 tablet 10/31/14 12/02/18 Unknown Rx lisinopriL [Zestril TAB] 40 mg PO QDAY #30 tablet 10/31/14 12/02/18 Unknown Rx predniSONE [Deltasone] 5 mg PO QDAY #30 tablet 10/31/14 12/02/18 Unknown Rx ALBUTEROL Inhaler (OR & NICU) 2 puff INHALATION DAILY 12/02/18 12/02/18 Unknown History Aldactone 25 mg PO DAILY 12/02/18 12/02/18 Unknown History Ambien 5 mg PO HS 12/02/18 12/02/18 Unknown History Apresoline TAB 50 mg PO DAILY 12/02/18 12/02/18 Unknown History Aspirin BABY CHEW TAB 81 mg PO DAILY 12/02/18 12/02/18 Unknown History Entresto 24 - 26 mg 1 tab PO DAILY 12/02/18 12/02/18 Unknown History Farxiga 5 mg PO DAILY 12/02/18 12/02/18 Unknown History Metolazone 2.5 mg PO DAILY 12/02/18 12/02/18 Unknown History Pantoprazole 40 mg PO DAILY 12/02/18 12/02/18 Unknown History Plaquenil 200 mg PO DAILY 12/02/18 12/02/18 Unknown History Plavix 75 mg PO DAILY 12/02/18 12/02/18 Unknown History Pravastatin 20 mg PO DAILY 12/02/18 12/02/18 Unknown History Sitagliptin Phos/Metformin HCl 1 tab PO DAILY 12/02/18 12/02/18 Unknown History Zanaflex 4mg CAP 1 tab PO DAILY 12/02/18 12/02/18 Unknown History Review of Systems ROS: Stated complaint: RECTAL BLEED Other details as noted in HPI Comment: All other systems reviewed and negative Constitutional: denies: chills, fever Eyes: denies: eye pain, vision change ENT: denies: ear pain, throat pain Respiratory: denies: cough, shortness of breath Cardiovascular: denies: chest pain, palpitations Gastrointestinal: abdominal pain, hematochezia. denies: vomiting Genitourinary: denies: dysuria, discharge Musculoskeletal: denies: back pain, arthralgia Skin: denies: rash, lesions Neurological: denies: headache, weakness 14 point review of systems done-otherwise negative. Past History Past Medical History: acute [place] (2006 per old records), anemia, CAD (Hx of [place]/stents; Cards is Georgie Landeros), COPD, diabetes, GERD, heart failure (AICD), hypertension, hyperlipidemia, liver disease, other (Obesity, ARACELI, cirr hosis) Past Surgical History: Other (PM/AICD) Medications and Allergies Allergies Allergy/AdvReac Type Severity Reaction Status Date / Time Sulfa (Sulfonamide Allergy Unknown Rash Verified 07/17/13 11:06 Antibiotics) SWEET GUM POLLEN Allergy Intermediate Unknown Uncoded 12/01/18 14:51 Home Medications Medication Instructions Recorded Confirmed Last Taken Type Ipratropium Kake 1 tab PO DAILY 03/24/13 12/02/18 09/11/14 History Folic Acid 1 mg PO QDAY 03/25/13 12/02/18 09/11/14 History Insulin Lispro [HumaLOG VIAL] 30 units SQ PRN PRN 03/25/13 12/02/18 09/11/14 History Potassium 20 meq PO BID 03/25/13 12/02/18 09/11/14 History Furosemide [Lasix TAB] 80 mg PO BID tablet 09/14/14 12/02/18 Unknown Rx Insulin Regular, Human [HumuLIN R] 0 units SUB-Q ACHS units 09/14/14 12/02/18 Unknown Rx Calcium Carbonate/Vitamin D3 1 tab PO DAILY #30 tablet 10/31/14 12/02/18 Unknown Rx [Calcium 600-Vit D3 200 Tablet] Colesevelam [Welchol] 625 mg PO BID #60 tablet 10/31/14 12/02/18 Unknown Rx Hydroxychloroquine [Plaquenil] 200 mg PO BID #30 tablet 10/31/14 12/02/18 Unknown Rx Isosorb Dinit/Hydralazine [Bidil 1 each PO DAILY #60 tablet 10/31/14 12/02/18 Unknown Rx 20/37.5MG] Levothyroxine [Synthroid] 75 mcg PO DAILY #30 tablet 10/31/14 12/02/18 Unknown Rx Omeprazole [PriLOSEC] 20 mg PO PRN PRN #30 capsule. 10/31/14 12/02/18 Unknown Rx Sertraline [Zoloft] 100 mg PO DAILY #30 tablet 10/31/14 12/02/18 Unknown Rx azaTHIOprine [Azasan] 50 mg PO DAILY #60 tablet 10/31/14 12/02/18 Unknown Rx carvediloL [Coreg] 25 mg PO BID #60 tablet 10/31/14 12/02/18 Unknown Rx hydrOXYzine HCL [Atarax] 25 mg PO DAILY #30 tablet 10/31/14 12/02/18 Unknown Rx lisinopriL [Zestril TAB] 40 mg PO QDAY #30 tablet 10/31/14 12/02/18 Unknown Rx predniSONE [Deltasone] 5 mg PO QDAY #30 tablet 10/31/14 12/02/18 Unknown Rx ALBUTEROL Inhaler (OR & NICU) 2 puff INHALATION DAILY 12/02/18 12/02/18 Unknown History Aldactone 25 mg PO DAILY 12/02/18 12/02/18 Unknown History Ambien 5 mg PO HS 12/02/18 12/02/18 Unknown History Apresoline TAB 50 mg PO DAILY 12/02/18 12/02/18 Unknown History Aspirin BABY CHEW TAB 81 mg PO DAILY 12/02/18 12/02/18 Unknown History Entresto 24 - 26 mg 1 tab PO DAILY 12/02/18 12/02/18 Unknown History Farxiga 5 mg PO DAILY 12/02/18 12/02/18 Unknown History Metolazone 2.5 mg PO DAILY 12/02/18 12/02/18 Unknown History Pantoprazole 40 mg PO DAILY 12/02/18 12/02/18 Unknown History Plaquenil 200 mg PO DAILY 12/02/18 12/02/18 Unknown History Plavix 75 mg PO DAILY 12/02/18 12/02/18 Unknown History Pravastatin 20 mg PO DAILY 12/02/18 12/02/18 Unknown History Sitagliptin Phos/Metformin HCl 1 tab PO DAILY 12/02/18 12/02/18 Unknown History Zanaflex 4mg CAP 1 tab PO DAILY 12/02/18 12/02/18 Unknown History Exam - Constitutional Vitals: Temp Pulse Resp BP Pulse Ox 98.0 F 58 L 18 139/54 99 04/03/19 22:02 04/03/19 22:02 04/03/19 22:02 04/03/19 22:02 04/03/19 22:02 General appearance: Present: no acute distress, well-nourished - EENT Eyes: Present: PERRL ENT: hearing intact, clear oral mucosa - Neck Neck: Present: supple, normal ROM - Respiratory Respiratory effort: normal Respiratory: bilateral: CTA - Cardiovascular Heart rate: 78 Rhythm: regular Heart Sounds: Present: S1 & S2. Absent: rub, click - Extremities Extremities: no ischemia, pulses intact, pulses symmetrical, No edema Peripheral Pulses: within normal limits - Abdominal General gastrointestinal: Present: soft, non-tender, non-distended, normal bowel sounds Female genitourinary: Present: normal - Rectal Rectal Exam: stool bloody - Integumentary Integumentary: Present: clear, warm, dry - Musculoskeletal Musculoskeletal: gait normal, strength equal bilaterally - Psychiatric Psychiatric: appropriate mood/affect, intact judgment & insight - Neurologic Neurologic: CNII-XII intact, moves all extremities - Allied Health Allied health notes reviewed: nursing, case management Results - Labs CBC & Chem 7: 04/03/19 13:50 04/03/19 13:50 Labs: Laboratory Last Values WBC 6.8 K/mm3 (4.5-11.0) 04/03/19 13:50 RBC 2.83 M/mm3 (3.65-5.03) L 04/03/19 13:50 Hgb 8.9 gm/dl (10.1-14.3) L 04/03/19 13:50 Hct 26.9 % (30.3-42.9) L 04/03/19 13:50 MCV 95 fl (79-97) 04/03/19 13:50 MCH 32 pg (28-32) 04/03/19 13:50 MCHC 33 % (30-34) 04/03/19 13:50 RDW 14.8 % (13.2-15.2) 04/03/19 13:50 Plt Count 141 K/mm3 (140-440) 04/03/19 13:50 Lymph % (Auto) 14.7 % (13.4-35.0) 04/03/19 13:50 [place] % (Auto) 6.3 % (0.0-7.3) 04/03/19 13:50 Eos % (Auto) 1.5 % (0.0-4.3) 04/03/19 13:50 Baso % (Auto) 0.3 % (0.0-1.8) 04/03/19 13:50 Lymph # 1.0 K/mm3 (1.2-5.4) L 04/03/19 13:50 [place] # 0.4 K/mm3 (0.0-0.8) 04/03/19 13:50 Eos # 0.1 K/mm3 (0.0-0.4) 04/03/19 13:50 Baso # 0.0 K/mm3 (0.0-0.1) 04/03/19 13:50 Seg Neutrophils % 77.2 % (40.0-70.0) H 04/03/19 13:50 Seg Neutrophils # 5.2 K/mm3 (1.8-7.7) 04/03/19 13:50 PT 15.4 Sec. (12.2-14.9) H 04/03/19 13:50 INR 1.20 (0.87-1.13) H 04/03/19 13:50 APTT 26.9 Sec. (24.2-36.6) 04/03/19 13:50 Sodium 141 mmol/L (137-145) 04/03/19 13:50 Potassium 3.3 mmol/L (3.6-5.0) L 04/03/19 13:50 Chloride 107.5 mmol/L (98-107) H 04/03/19 13:50 Carbon Dioxide 20 mmol/L (22-30) L 04/03/19 13:50 Anion Gap 17 mmol/L 04/03/19 13:50 BUN 16 mg/dL (7-17) 04/03/19 13:50 Creatinine 1.0 mg/dL (0.7-1.2) 04/03/19 13:50 Estimated GFR > 60 ml/min 04/03/19 13:50 BUN/Creatinine Ratio 16 % 04/03/19 13:50 Glucose 105 mg/dL (65-100) H 04/03/19 13:50 POC Glucose 91 (70-105) 04/03/19 22:16 Calcium 8.3 mg/dL (8.4-10.2) L 04/03/19 13:50 Total Bilirubin 0.60 mg/dL (0.1-1.2) 04/03/19 13:50 Direct Bilirubin < 0.2 mg/dL (0-0.2) 04/03/19 13:50 Indirect Bilirubin 0.4 mg/dL 04/03/19 13:50 AST 17 units/L (5-40) 04/03/19 13:50 ALT 12 units/L (7-56) 04/03/19 13:50 Alkaline Phosphatase 91 units/L (35-129) 04/03/19 13:50 Total Protein 6.5 g/dL (6.3-8.2) 04/03/19 13:50 Albumin 3.1 g/dL (3.9-5) L 04/03/19 13:50 Albumin/Globulin Ratio 0.9 % 04/03/19 13:50 Blood Type O POSITIVE 04/03/19 13:50 Antibody Screen Negative 04/03/19 13:50 Crossmatch See Detail 04/03/19 13:50 Assessment and Plan Advance Directives: Yes (Full code) VTE prophylaxis?: Mechanical Plan of care discussed with patient/family: Yes - Patient Problems (1) Lower GI bleed Current Visit: Yes Status: Acute Plan to address problem: Patient had colonoscopy yesterday and polypectomy was done Since then patient has severe lower GI bleed. Monitor hemoglobin and hematocrit Transfuse if necessary GI consult requested (2) Acute blood loss anemia Current Visit: Yes Status: Acute Plan to address problem: Transfuse as necessary (3) Insulin dependent diabetes mellitus Current Visit: Yes Status: Chronic Plan to address problem: Continue home insulin and coverage Check hemoglobin A1c (4) Hypothyroidism (acquired) Current Visit: Yes Status: Chronic Plan to address problem: We will hold Synthroid for now (5) Benign essential hypertension Onset Date: 10/29/14 Current Visit: No Status: Chronic Plan to address problem: Patient initiated on Catapres patch (6) Lupus Current Visit: Yes Status: Chronic Plan to address problem: We will hold Plaquenil and azathioprine (7) CHF (congestive heart failure) Current Visit: Yes Status: Chronic Qualifiers: Heart failure type: combined systolic and diastolic Plan to address problem: Continue Entresto (8) Hyperlipidemia Current Visit: Yes Status: Chronic Qualifiers: Hyperlipidemia type: mixed hyperlipidemia Qualified Code(s): E78.2 - Mixed hyperlipidemia Plan to address problem: We will hold the statins (9) DVT prophylaxis Current Visit: Yes Status: Acute Plan to address problem: On SCDs and GI prophylaxis
[2019-04-04] MEDS ORDERED: HYDROmorphone 1 MG/1 ML INJ IV PRN (00:40)
[2019-04-04] MEDS ORDERED: ONDANSETRON 4 MG/2 ML INJ IV PRN (00:40)
[2019-04-04] MEDS ORDERED: ACETAMINOPHEN 325 MG TAB PO PRN (00:40)
[2019-04-04] MEDS ORDERED: SODIUM CHLORIDE 0.9% 1000 ML 1,000 ML IV SCH (00:45)
[2019-04-04] MEDS ORDERED: ALBUTEROL 2.5 MG/3 ML NEBU IH PRN (01:07)
[2019-04-04 04:59] LABS: Basophils % (Auto) 0.3 % (0.0-1.8); Eosinophils # (Auto) 0.1 K/mm3 (0.0-0.4); Eosinophils % (Auto) 1.6 % (0.0-4.3); Hematocrit 26.5 % (30.3-42.9); Hemoglobin 8.9 gm/dl (10.1-14.3); Lymphocytes # (Auto) 0.6 K/mm3 (1.2-5.4); Lymphocytes % (Auto) 9.4 % (13.4-35.0); Mean Corpuscular HGB Conc 34 % (30-34); Mean Corpuscular Volume 94 fl (79-97); Monocytes # (Auto) 0.5 K/mm3 (0.0-0.8); Monocytes % (Auto) 8.1 % (0.0-7.3); Platelet Count 117 K/mm3 (140-440); Red Blood Count 2.82 M/mm3 (3.65-5.03); Red Cell Distribution Width 14.9 % (13.2-15.2)
[2019-04-04] MEDS: FAMOTIDINE 20 MG/2 ML INJ IV SCH ×2 (05:11→10:24)
[2019-04-04 05:26] LABS: Alanine Aminotransferase 10 units/L (7-56); Albumin 3.4 g/dL (3.9-5); BUN/Creatinine Ratio 15; Blood Urea Nitrogen 15 mg/dL (7-17); Calcium 8.4 mg/dL (8.4-10.2); Hemolysis Index 3
[2019-04-04] MEDS: ALBUTEROL 2.5 MG/3 ML NEBU IH SCH (09:21)
[2019-04-04 09:26] LABS: Hematocrit 25.1 % (30.3-42.9); Hemoglobin 8.5 gm/dl (10.1-14.3)
[2019-04-04] MEDS ORDERED: cloNIDine TTS 0.2 MG/24 HR PATCH TD SCH (10:00)
[2019-04-04] MEDS ORDERED: ENTRESTO PO SCH (10:00)
[2019-04-04] MEDS ORDERED: [UNRECOGNIZED DRUG - REMARK] INHALATION SCH (10:00)
[2019-04-04] MEDS: SACUBITRIL/VALSARTAN 24-26 MG TAB PO SCH (10:20)
[2019-04-04] MEDS: INSULIN LISPRO 100 UNIT/ML SUB-Q SCH ×3 (12:43→22:03)
[2019-04-04] MEDS: D5W/0.45% NACL 1,000 ML IV SCH (12:52)
--- NOTE | 2019-04-04 13:00 | Progress Note ---
Assessment and Plan Examined 58-year-old -[place] female with multiple medical problems including insulin-dependent diabetes hypothyroidism hypertension lupus and hyperlipidemia comes in for lower GI bleed from yesterday. Patient had colonoscopy and a polyp was removed and rectal discharge from the colonoscopy suite. Patient had lower GI bleeding in the past few weeks off and on. After the procedure patient continues to have mild to moderate bleeding-bright red blood and blood clots. Patient feels weak and lightheaded. No shortness of breath. No chest pain. Lower GI bleeding after colonoscopy/EGD and polypectomy on 04/02/19 that showed Grade I esophageal varices, colon tics on L side, and 2cm polyp in cecum (removed; endoclip x 3). - Unclear if patient continuing ASA and plavix, but also has mild ESLD (platelets 135 in clinic and INR 1.1 in clinic). Has not notice any bleeding since abdmsion was commenced on nothing by mouth, IV hydration. GI consulted. 1) Lower GI bleed Current Visit: Yes Status: Acute Plan to address problem: Patient had colonoscopy 04/02/19 and polypectomy was done Since then patient has severe lower GI bleed. Monitor hemoglobin and hematocrit Transfuse if necessary GI consulted and following (2) Acute blood loss anemia Current Visit: Yes Status: Acute Plan to address problem: Transfuse as necessary (3) Insulin dependent diabetes mellitus Current Visit: Yes Status: Chronic Plan to address problem: Continue home insulin and coverage A1c 6.5% (4) Hypothyroidism (acquired) Current Visit: Yes Status: Chronic Plan to address problem: We will hold Synthroid for now (5) Benign essential hypertension Onset Date: 10/29/14 Current Visit: No Status: Chronic Plan to address problem: Patient initiated on Catapres patch (6) Lupus Current Visit: Yes Status: Chronic Plan to address problem: We will hold Plaquenil and azathioprine (7) CHF (congestive heart failure) Current Visit: Yes Status: Chronic Qualifiers: Heart failure type: combined systolic and diastolic Plan to address problem: Continue Entresto, BB (8) Hyperlipidemia Current Visit: Yes Status: Chronic Qualifiers: Hyperlipidemia type: mixed hyperlipidemia Qualified Code(s): E78.2 - Mixed hyperlipidemia Plan to address problem: We will hold the statins (9) DVT prophylaxis Current Visit: Yes Status: Acute Plan to address problem: On SCDs and GI prophylaxis Subjective Date of service: 04/04/19 Principal diagnosis: lower GI bleeding, T2 DM, hypothyroidism, SLE, CHF. Interval history: Patient has no noticed any further GI bleeding since admission. No bright red blood, no melena Objective - Exam Narrative Exam: Constitutional: Well-nourished well-developed. In no distress Head: Normocephalic atraumatic Eyes: Pupils are equal round and reactive to light Nose: No enlarged turbinates, no septal deviation. Mouth: Moist mucous membranes. Neck: Supple no thyromegaly. No bruit. No JVD Heart: Regular rate and rhythm, S1-S2 normal. No rubs murmurs or gallop Lungs: Clear to auscultation bilaterally. no rales or rhonchi Abdomen: Soft, nontender. Bowel sound are present. Extremities: No edema, no cyanosis, no clubbing. Neuro: Alert oriented Oriented x3. No focal sensory or motor deficit. Skin: No rashes or hyperpigmented spots Musculoskeletal system: No joint pain or swelling Hematological: No petechia or subcutanous hemorrhages. Immunological: No multiple septic spots on the skin Lymphatic: No generalized lymphadenopathy Psychiatry: Euthymic. Calm. - Constitutional Vitals: Vital Signs - 12hr 04/04/19 04/04/19 04/04/19 01:39 02:09 02:24 Temperature 98.1 F 98.1 F 98.3 F Pulse Rate 72 43 L 60 Pulse Rate [ Anterior Bilateral Throughout] Respiratory 20 18 18 Rate Respiratory Rate [Anterior Bilateral Throughout] Blood Pressure 127/45 125/51 Blood Pressure 135/61 [Right] O2 Sat by Pulse 97 94 95 Oximetry 04/04/19 04/04/19 04/04/19 02:54 03:24 03:54 Temperature 98.4 F 98.3 F 98.3 F Pulse Rate 60 49 L 58 L Pulse Rate [ Anterior Bilateral Throughout] Respiratory 18 18 18 Rate Respiratory Rate [Anterior Bilateral Throughout] Blood Pressure 124/54 112/49 120/54 Blood Pressure [Right] O2 Sat by Pulse 95 94 94 Oximetry 04/04/19 04/04/19 04/04/19 04:24 05:50 06:05 Temperature 98.3 F 98.6 F 98.6 F Pulse Rate 49 L 59 L 48 L Pulse Rate [ Anterior Bilateral Throughout] Respiratory 18 17 18 Rate Respiratory Rate [Anterior Bilateral Throughout] Blood Pressure 111/52 130/60 142/58 Blood Pressure [Right] O2 Sat by Pulse 100 99 96 Oximetry 04/04/19 04/04/19 04/04/19 06:20 06:50 07:20 Temperature 98.6 F 98.6 F 98.1 F Pulse Rate 52 L 58 L 57 L Pulse Rate [ Anterior Bilateral Throughout] Respiratory 18 17 18 Rate Respiratory Rate [Anterior Bilateral Throughout] Blood Pressure 149/59 142/55 139/63 Blood Pressure [Right] O2 Sat by Pulse 100 92 95 Oximetry 04/04/19 04/04/19 04/04/19 07:50 08:20 08:50 Temperature 98.3 F 98.1 F 97.5 F L Pulse Rate 53 L 55 L 62 Pulse Rate [ Anterior Bilateral Throughout] Respiratory 18 18 Rate Respiratory Rate [Anterior Bilateral Throughout] Blood Pressure 133/64 123/66 135/55 Blood Pressure [Right] O2 Sat by Pulse 98 94 91 Oximetry 04/04/19 04/04/19 04/04/19 09:26 09:46 10:38 Temperature Pulse Rate 86 Pulse Rate [ 58 L Anterior Bilateral Throughout] Respiratory Rate Respiratory 18 Rate [Anterior Bilateral Throughout] Blood Pressure 135/55 Blood Pressure [Right] O2 Sat by Pulse 94 Oximetry - Labs CBC & Chem 7: 04/05/19 04:23 04/04/19 04:07 Labs: Abnormal lab results 04/03/19 04/03/19 04/03/19 Range/Units 13:46 13:50 13:50 RBC 2.83 L (3.65-5.03) M/mm3 Hgb 8.9 L (10.1-14.3) gm/dl Hct 26.9 L (30.3-42.9) % Plt Count (140-440) K/mm3 Lymph % (Auto) (13.4-35.0) % [place] % (Auto) (0.0-7.3) % Lymph # 1.0 L (1.2-5.4) K/mm3 Seg Neutrophils % 77.2 H (40.0-70.0) % PT (12.2-14.9) Sec. INR (0.87-1.13) Potassium 3.3 L (3.6-5.0) mmol/L Chloride 107.5 H (98-107) mmol/L Carbon Dioxide 20 L (22-30) mmol/L Glucose 105 H (65-100) mg/dL POC Glucose 114 H (70-105) Hemoglobin A1c (4-6) % Calcium 8.3 L (8.4-10.2) mg/dL Albumin (3.9-5) g/dL Crossmatch 04/03/19 04/03/19 04/03/19 Range/Units 13:50 13:50 13:50 RBC (3.65-5.03) M/mm3 Hgb (10.1-14.3) gm/dl Hct (30.3-42.9) % Plt Count (140-440) K/mm3 Lymph % (Auto) (13.4-35.0) % [place] % (Auto) (0.0-7.3) % Lymph # (1.2-5.4) K/mm3 Seg Neutrophils % (40.0-70.0) % PT 15.4 H (12.2-14.9) Sec. INR 1.20 H (0.87-1.13) Potassium (3.6-5.0) mmol/L Chloride (98-107) mmol/L Carbon Dioxide (22-30) mmol/L Glucose (65-100) mg/dL POC Glucose (70-105) Hemoglobin A1c (4-6) % Calcium (8.4-10.2) mg/dL Albumin 3.1 L (3.9-5) g/dL Crossmatch See Detail 04/04/19 04/04/19 04/04/19 Range/Units 04:07 04:07 04:07 RBC 2.82 L (3.65-5.03) M/mm3 Hgb 8.9 L (10.1-14.3) gm/dl Hct 26.5 L (30.3-42.9) % Plt Count 117 L (140-440) K/mm3 Lymph % (Auto) 9.4 L (13.4-35.0) % [place] % (Auto) 8.1 H (0.0-7.3) % Lymph # 0.6 L (1.2-5.4) K/mm3 Seg Neutrophils % 80.6 H (40.0-70.0) % PT (12.2-14.9) Sec. INR (0.87-1.13) Potassium 3.5 L (3.6-5.0) mmol/L Chloride 111.1 H (98-107) mmol/L Carbon Dioxide (22-30) mmol/L Glucose 154 H (65-100) mg/dL POC Glucose (70-105) Hemoglobin A1c 6.5 H (4-6) % Calcium (8.4-10.2) mg/dL Albumin 3.4 L (3.9-5) g/dL Crossmatch 04/04/19 04/04/19 Range/Units 07:49 08:53 RBC (3.65-5.03) M/mm3 Hgb 8.5 L (10.1-14.3) gm/dl Hct 25.1 L (30.3-42.9) % Plt Count (140-440) K/mm3 Lymph % (Auto) (13.4-35.0) % [place] % (Auto) (0.0-7.3) % Lymph # (1.2-5.4) K/mm3 Seg Neutrophils % (40.0-70.0) % PT (12.2-14.9) Sec. INR (0.87-1.13) Potassium (3.6-5.0) mmol/L Chloride (98-107) mmol/L Carbon Dioxide (22-30) mmol/L Glucose (65-100) mg/dL POC Glucose 120 H (70-105) Hemoglobin A1c (4-6) % Calcium (8.4-10.2) mg/dL Albumin (3.9-5) g/dL Crossmatch
--- NOTE | 2019-04-04 14:14 | Gastroenterology Progress Note ---
Assessment and Plan - Patient Problems (1) GI bleed Current Visit: Yes Status: Acute Qualifiers: GI bleed type/associated pathology: unspecified gastrointestinal hemorrhage type Qualified Code(s): K92.2 - Gastrointestinal hemorrhage, unspecified Plan to address problem: - EGD/Colon 04/02 with Grade I esophageal varices, colon tics on L side, and 2cm polyp in colon (removed; endoclip x 3). - Unclear if patient continuing ASA and plavix, but also has mild ESLD (platelets 135 in clinic and INR 1.1 in clinic). - Likely post-polypectomy bleed, though tics possible. - CTA 04/03 negative active hemorrhage, and clinically improved. - Given cirrhosis, and size of mucosal defect, fell the best option at this point, if recurrent bleeding in the cecum, would be IR/embolization, and we have consulted Interventional Radiology. - Would recommend transfusion if hct < 24. - Platelet transfusion may be of benefit if less than 100K, though less value than FFP. - If vascular intervention unsuccessful, then repeat endoscopy, or surgical intervention, may be needed; however, it appears to be resolving at this point. - If stable, may d/c 04/05; would hold Plavix until 04/08, and d/c ASA for now given liver disease/low platelets. Subjective Date of service: 04/04/19 Principal diagnosis: Post-polypectomy Bleed Interval history: The patient has not had a BM > 12 hours, and has no N/V/abdominal pain. She is hungry and wants to eat/her pain has resolved. She does not feel weak when getting up to the side of the bed. Objective - Constitutional Vitals: Temp Pulse Resp BP Pulse Ox 97.5 F L 86 18 135/55 94 04/04/19 08:50 04/04/19 10:38 04/04/19 09:46 04/04/19 10:38 04/04/19 09:26 General appearance: no acute distress - Respiratory Respiratory effort: normal Respiratory: bilateral: CTA - Cardiovascular Rhythm: regular Heart Sounds: Present: S1 & S2 - Gastrointestinal General gastrointestinal: Present: soft, non-tender, non-distended - Labs CBC & Chem 7: 04/04/19 08:53 04/04/19 04:07 Labs: Laboratory Results - last 24 hr 04/03/19 04/03/1919 13:46 13:50 13:50 WBC 6.8 RBC 2.83 L Hgb 8.9 L Hct 26.9 L MCV 95 MCH 32 MCHC 33 RDW 14.8 Plt Count 141 Lymph % (Auto) 14.7 [place] % (Auto) 6.3 Eos % (Auto) 1.5 Baso % (Auto) 0.3 Lymph # 1.0 L [place] # 0.4 Eos # 0.1 Baso # 0.0 Seg Neutrophils % 77.2 H Seg Neutrophils # 5.2 PT INR APTT Sodium 141 Potassium 3.3 L Chloride 107.5 H Carbon Dioxide 20 L Anion Gap 17 BUN 16 Creatinine 1.0 Estimated GFR > 60 BUN/Creatinine Ratio 16 Glucose 105 H POC Glucose 114 H Hemoglobin A1c Calcium 8.3 L Total Bilirubin Direct Bilirubin Indirect Bilirubin AST ALT Alkaline Phosphatase Total Protein Albumin Albumin/Globulin Ratio Blood Type Antibody Screen Crossmatch 04/03/19 04/03/19 04/03/19 13:50 13:50 13:50 WBC RBC Hgb Hct MCV MCH MCHC RDW Plt Count Lymph % (Auto) [place] % (Auto) Eos % (Auto) Baso % (Auto) Lymph # [place] # Eos # Baso # Seg Neutrophils % Seg Neutrophils # PT 15.4 H INR 1.20 H APTT 26.9 Sodium Potassium Chloride Carbon Dioxide Anion Gap BUN Creatinine Estimated GFR BUN/Creatinine Ratio Glucose POC Glucose Hemoglobin A1c Calcium Total Bilirubin 0.60 Direct Bilirubin < 0.2 Indirect Bilirubin 0.4 AST 17 ALT 12 Alkaline Phosphatase 91 Total Protein 6.5 Albumin 3.1 L Albumin/Globulin Ratio 0.9 Blood Type O POSITIVE Antibody Screen Negative Crossmatch See Detail 04/03/19 04/04/19 04/04/19 22:16 04:07 04:07 WBC 6.7 RBC 2.82 L Hgb 8.9 L Hct 26.5 L MCV 94 MCH 32 MCHC 34 RDW 14.9 Plt Count 117 L Lymph % (Auto) 9.4 L [place] % (Auto) 8.1 H Eos % (Auto) 1.6 Baso % (Auto) 0.3 Lymph # 0.6 L [place] # 0.5 Eos # 0.1 Baso # 0.0 Seg Neutrophils % 80.6 H Seg Neutrophils # 5.4 PT INR APTT Sodium 145 Potassium 3.5 L Chloride 111.1 H Carbon Dioxide 22 Anion Gap 15 BUN 15 Creatinine 1.0 Estimated GFR > 60 BUN/Creatinine Ratio 15 Glucose 154 H POC Glucose 91 Hemoglobin A1c Calcium 8.4 Total Bilirubin 0.60 Direct Bilirubin Indirect Bilirubin AST 14 ALT 10 Alkaline Phosphatase 81 Total Protein 6.4 Albumin 3.4 L Albumin/Globulin Ratio 1.1 Blood Type Antibody Screen Crossmatch 04/04/19 04/04/19 04/04/19 04:07 07:49 08:53 WBC RBC Hgb 8.5 L Hct 25.1 L MCV MCH MCHC RDW Plt Count Lymph % (Auto) [place] % (Auto) Eos % (Auto) Baso % (Auto) Lymph # [place] # Eos # Baso # Seg Neutrophils % Seg Neutrophils # PT INR APTT Sodium Potassium Chloride Carbon Dioxide Anion Gap BUN Creatinine Estimated GFR BUN/Creatinine Ratio Glucose POC Glucose 120 H Hemoglobin A1c 6.5 H Calcium Total Bilirubin Direct Bilirubin Indirect Bilirubin AST ALT Alkaline Phosphatase Total Protein Albumin Albumin/Globulin Ratio Blood Type Antibody Screen Crossmatch 04/04/19 11:54 WBC RBC Hgb Hct MCV MCH MCHC RDW Plt Count Lymph % (Auto) [place] % (Auto) Eos % (Auto) Baso % (Auto) Lymph # [place] # Eos # Baso # Seg Neutrophils % Seg Neutrophils # PT INR APTT Sodium Potassium Chloride Carbon Dioxide Anion Gap BUN Creatinine Estimated GFR BUN/Creatinine Ratio Glucose POC Glucose 95 Hemoglobin A1c Calcium Total Bilirubin Direct Bilirubin Indirect Bilirubin AST ALT Alkaline Phosphatase Total Protein Albumin Albumin/Globulin Ratio Blood Type Antibody Screen Crossmatch
[2019-04-04] MEDS ORDERED: INSULIN LISPRO 100 UNIT/ML SUB-Q SCH (22:00)
[2019-04-05] MEDS: D5W/0.45% NACL 1,000 ML IV SCH (00:12)
[2019-04-05 05:45] LABS: Basophils % (Auto) 0.4 % (0.0-1.8); Eosinophils # (Auto) 0.1 K/mm3 (0.0-0.4); Hematocrit 25.5 % (30.3-42.9); Hemoglobin 8.7 gm/dl (10.1-14.3); Lymphocytes # (Auto) 0.6 K/mm3 (1.2-5.4); Lymphocytes % (Auto) 11.7 % (13.4-35.0); Mean Corpuscular HGB Conc 34 % (30-34); Mean Corpuscular Volume 94 fl (79-97); Monocytes # (Auto) 0.5 K/mm3 (0.0-0.8); Monocytes % (Auto) 10.5 % (0.0-7.3); Platelet Count 107 K/mm3 (140-440); Red Blood Count 2.72 M/mm3 (3.65-5.03)
[2019-04-05] MEDS: ALBUTEROL 2.5 MG/3 ML NEBU IH SCH (07:37)
[2019-04-05] MEDS: INSULIN LISPRO 100 UNIT/ML SUB-Q SCH ×2 (07:46→12:42)
--- NOTE | 2019-04-05 09:50 | Progress Note ---
Assessment and Plan Examined 58-year-old -[place] female with multiple medical problems including insulin-dependent diabetes hypothyroidism hypertension lupus and hyperlipidemia comes in for lower GI bleed from yesterday. Patient had colonoscopy and a polyp was removed and rectal discharge from the colonoscopy suite. Patient had lower GI bleeding in the past few weeks off and on. After the procedure patient continues to have mild to moderate bleeding-bright red blood and blood clots. Patient feels weak and lightheaded. No shortness of breath. No chest pain. Lower GI bleeding after colonoscopy/EGD and polypectomy on 04/02/19 that showed Grade I esophageal varices, colon tics on L side, and 2cm polyp in cecum (removed; endoclip x 3). - Unclear if patient continuing ASA and plavix, but also has mild ESLD (platelets 135 in clinic and INR 1.1 in clinic). Has not notice any bleeding since abdmsion was commenced on nothing by mouth, IV hydration. GI consulted. 1) Lower GI bleed Current Visit: Yes Status: Acute Plan to address problem: Patient had colonoscopy 04/02/19 and polypectomy was done Since then patient has severe lower GI bleed. Monitor hemoglobin and hematocrit Transfuse if necessary GI consulted and following (2) Acute blood loss anemia Current Visit: Yes Status: Acute Plan to address problem: Transfuse as necessary (3) Insulin dependent diabetes mellitus Current Visit: Yes Status: Chronic Plan to address problem: Continue home insulin and coverage A1c 6.5% (4) Hypothyroidism (acquired) Current Visit: Yes Status: Chronic Plan to address problem: We will hold Synthroid for now (5) Benign essential hypertension Onset Date: 10/29/14 Current Visit: No Status: Chronic Plan to address problem: Patient initiated on Catapres patch (6) Lupus Current Visit: Yes Status: Chronic Plan to address problem: We will hold Plaquenil and azathioprine (7) CHF (congestive heart failure) Current Visit: Yes Status: Chronic Qualifiers: Heart failure type: combined systolic and diastolic Plan to address problem: Continue Entresto, BB (8) Hyperlipidemia Current Visit: Yes Status: Chronic Qualifiers: Hyperlipidemia type: mixed hyperlipidemia Qualified Code(s): E78.2 - Mixed hyperlipidemia Plan to address problem: We will hold the statins (9) DVT prophylaxis Current Visit: Yes Status: Acute Plan to address problem: On SCDs and GI prophylaxis Disposityon: D/c home if okay with GI Subjective Date of service: 04/05/19 Principal diagnosis: lower GI bleeding, T2 DM, hypothyroidism, SLE, CHF. Interval history: c/o of some blood in tete last nigh. Patient noticed any further GI bleeding since admission. Had sligh bright red blood, last night Objective - Exam Narrative Exam: Constitutional: Well-nourished well-developed. In no distress Head: Normocephalic atraumatic Eyes: Pupils are equal round and reactive to light Nose: No enlarged turbinates, no septal deviation. Mouth: Moist mucous membranes. Neck: Supple no thyromegaly. No bruit. No JVD Heart: Regular rate and rhythm, S1-S2 normal. No rubs murmurs or gallop Lungs: Clear to auscultation bilaterally. no rales or rhonchi Abdomen: Soft, nontender. Bowel sound are present. Extremities: No edema, no cyanosis, no clubbing. Neuro: Alert oriented Oriented x3. No focal sensory or motor deficit. Skin: No rashes or hyperpigmented spots Musculoskeletal system: No joint pain or swelling Hematological: No petechia or subcutanous hemorrhages. Immunological: No multiple septic spots on the skin Lymphatic: No generalized lymphadenopathy Psychiatry: Euthymic. Calm. - Constitutional Vitals: Vital Signs - 12hr 04/04/19 04/04/19 04/05/19 23:29 23:41 06:04 Temperature 98.8 F 98.6 F Pulse Rate 39 L 50 L 62 Pulse Rate [ Anterior Bilateral Throughout] Respiratory 20 20 Rate Respiratory Rate [Anterior Bilateral Throughout] Blood Pressure 140/33 149/80 136/75 O2 Sat by Pulse 92 93 93 Oximetry 04/05/19 04/05/19 04/05/19 07:34 07:38 07:41 Temperature Pulse Rate Pulse Rate [ 68 Anterior Bilateral Throughout] Respiratory Rate Respiratory 18 Rate [Anterior Bilateral Throughout] Blood Pressure O2 Sat by Pulse 96 96 Oximetry - Labs CBC & Chem 7: 04/05/19 04:23 04/04/19 04:07 Labs: Abnormal lab results 04/04/19 04/04/19 04/05/19 Range/Units 17:09 21:48 04:23 RBC 2.72 L (3.65-5.03) M/mm3 Hgb 8.7 L (10.1-14.3) gm/dl Hct 25.5 L (30.3-42.9) % Plt Count 107 L (140-440) K/mm3 Lymph % (Auto) 11.7 L (13.4-35.0) % [place] % (Auto) 10.5 H (0.0-7.3) % Lymph # 0.6 L (1.2-5.4) K/mm3 Seg Neutrophils % 75.4 H (40.0-70.0) % POC Glucose 123 H 161 H (70-105) 04/05/ Range/Units 07:46 RBC (3.65-5.03) M/mm3 Hgb (10.1-14.3) gm/dl Hct (30.3-42.9) % Plt Count (140-440) K/mm3 Lymph % (Auto) (13.4-35.0) % [place] % (Auto) (0.0-7.3) % Lymph # (1.2-5.4) K/mm3 Seg Neutrophils % (40.0-70.0) % POC Glucose 107 H (70-105)
[2019-04-05] MEDS ORDERED: PANTOPRAZOLE 40 MG TAB PO SCH (10:00)
[2019-04-05] MEDS ORDERED: MULTIVITAMINS ,THERAPEUTIC TAB PO SCH (10:00)
[2019-04-05] MEDS ORDERED: FE FUMARATE/FA/MV, MIN COMB#15 CAP (HEMOCYTE PLUS) PO SCH (10:00)
[2019-04-05] MEDS: SACUBITRIL/VALSARTAN 24-26 MG TAB PO SCH (10:32)
--- NOTE | 2019-04-05 12:37 | Gastroenterology Progress Note ---
Assessment and Plan Post-polypectomy bleed has clinically stopped. Hemoglobin has stabilized From GI standpoint may discharge home The next risk for post-polypectomy bleed is in the next 5-7 days, I recommend holding Plavix for the next 7 days then may resume after that as long as no more clinical bleeding - Patient Problems (1) Acute blood loss anemia Current Visit: Yes Status: Acute (2) Lower GI bleed Current Visit: Yes Status: Acute Subjective Date of service: 04/05/19 Principal diagnosis: lower GI bleeding, T2 DM, hypothyroidism, SLE, CHF. Interval history: Hemoglobin stabilized, no overt bleeding today She reports to have a little bit of old blood passing yesterday evening but her stool today was clear Objective - Constitutional Vitals: Temp Pulse Resp BP Pulse Ox 98.6 F 68 18 153/80 96 04/05/19 06:04 04/05/19 07:38 04/05/19 07:38 04/05/19 10:29 04/05/19 07:41 General appearance: no acute distress - Respiratory Respiratory effort: normal - Cardiovascular Rhythm: regular - Gastrointestinal General gastrointestinal: Present: soft, non-tender - Labs CBC & Chem 7: 04/05/19 04:23 04/04/19 04:07 Labs: Laboratory Results - last 24 hr 04/04/19 04/04/19 04/05/19 17:09 21:48 04:23 WBC 5.2 RBC 2.72 L Hgb 8.7 L Hct 25.5 L MCV 94 MCH 32 MCHC 34 RDW 15.0 Plt Count 107 L Lymph % (Auto) 11.7 L [place] % (Auto) 10.5 H Eos % (Auto) 2.0 Baso % (Auto) 0.4 Lymph # 0.6 L [place] # 0.5 Eos # 0.1 Baso # 0.0 Seg Neutrophils % 75.4 H Seg Neutrophils # 3.9 POC Glucose 123 H 161 H 04/05/19 07:46 WBC RBC Hgb Hct MCV MCH MCHC RDW Plt Count Lymph % (Auto) [place] % (Auto) Eos % (Auto) Baso % (Auto) Lymph # [place] # Eos # Baso # Seg Neutrophils % Seg Neutrophils # POC Glucose 107 H
[2019-04-05 13:00] VITALS: BP 156/93
--- NOTE | 2019-04-05 15:20 | Discharge Summary ---
Providers - Providers Date of Admission: 04/03/19 16:46 Date of discharge: 04/05/19 Attending physician: BILLIE MAZARIEGOS 04/03/19 13:44 Consult to Physician [CONS] Routine Comment: Dr. Sauer spoke with Dr. Longoria @ [phone] Consulting Provider: KIN LONGORIA Physician Instructions: Reason For Exam: GI bleed 04/03/19 14:16 Consult to Physician [CONS] Routine Comment: Consulting Provider: WILMER CLARKE Physician Instructions: Reason For Exam: GI bleed, possible embolization Primary care physician: CINDY REED MD Hospitalization Reason for admission: GI bleeding Condition: Fair Pertinent studies: CT abdomen and pelvis showed cirrhosis with moderate ascites as well as calcified gallbladder Procedures: None Hospital course: Examined 58-year-old -[place] female with multiple medical problems including insulin-dependent diabetes hypothyroidism hypertension lupus and hyperlipidemia comes in for lower GI bleed from yesterday. Patient had EGD/colonoscopy 04/02 and a polyp was removed from rectal discharge from the colonoscopy suite. Patient had lower GI bleeding in the past few weeks off and on. After the procedure patient continues to have mild to moderate bleeding- bright red blood and blood clots. Patient feels weak and lightheaded. No shortness of breath. No chest pain. GI was consulted. CT scan showed no evidence of any acute distress abdomen mild tenderness up for liver cirrhosis with calcified gallbladder. Jennifer H&H was that was ordered. IV proton is commenced. In the laboratory values consulted. The bleeding subsided. No further intervention was done. Patient then discharge is as normal rectal bleed ing. She is to follow-up with GI and to follow-up with primary care physician in one week and 5 days respectively. Patient advised to hold Plavix u ntil 04/08 and D/c ASA. Was advised to discontinue acetaminophen because of cirrhosis. Disposition: - TO HOME OR SELFCARE Time spent for discharge: 35 minutes - Discharge Diagnoses (1) Acute blood loss anemia Status: Acute (2) Anemia Status: Acute Qualifiers: Other causes of anemia: acute posthemorrhagic Qualified Code(s): D62 - Acute posthemorrhagic anemia Comment: Likely from severe epistaxis. Not requiring blood transfusion. Epistaxis controlled. (3) GI bleed Status: Acute Qualifiers: GI bleed type/associated pathology: unspecified gastrointestinal hemorrhage type Qualified Code(s): K92.2 - Gastrointestinal hemorrhage, unspecified (4) Hypothyroidism Status: Acute Core Measure Documentation - Palliative Care Palliative Care/ Comfort Measures: Not Applicable - Core Measures Any of the following diagnoses?: none Exam - Physical Exam Narrative exam: Constitutional: Well-nourished well-developed. In no distress Head: Normocephalic atraumatic Eyes: Pupils are equal round and reactive to light Nose: No enlarged turbinates, no septal deviation. Mouth: Moist mucous membranes. Neck: Supple no thyromegaly. No bruit. No JVD Heart: Regular rate and rhythm, S1-S2 normal. No rubs murmurs or gallop Lungs: Clear to auscultation bilaterally. no rales or rhonchi Abdomen: Soft, nontender. Bowel sound are present. Extremities: No edema, no cyanosis, no clubbing. Neuro: Alert oriented Oriented x3. No focal sensory or motor deficit. Skin: No rashes or hyperpigmented spots Musculoskeletal system: No joint pain or swelling Hematological: No petechia or subcutanous hemorrhages. Immunological: No multiple septic spots on the skin Lymphatic: No generalized lymphadenopathy Psychiatry: Euthymic. Calm. - Constitutional Vitals: Temp Pulse Resp BP Pulse Ox 97.9 F 68 18 156/93 97 04/05/19 11:52 04/05/19 07:38 04/05/19 11:52 04/05/19 11:52 04/05/19 11:52 Plan Activity: fall precautions Weight Bearing Status: Non-Weight Bearing Diet: regular Follow up with: NILA ANDINO JR., MD [Referring] - 3-5 Days KIN LONGORIA MD [Staff Physician] - 7 Days Forms: Accompanied Note Prescriptions: hydrOXYzine HCL [Atarax] 25 mg PO DAILY #30 tablet carvediloL [Coreg] 25 mg PO BID #60 tablet Sacubitril/Valsartan [Entresto 24 - 26 mg] 1 each PO DAILY #30 tablet Lispro Insulin [HumaLOG] 0 unit SUB-Q ACHS #3 units Furosemide [Lasix TAB] 80 mg PO BID #60 tablet Metolazone 2.5 mg PO DAILY #30 Pantoprazole 40 mg PO DAILY #30 Plavix 75 mg PO DAILY #30
== END 2019-04-05 16:30 | disposition home or self-care (01) | DRG 378 ==
LOC: ED 12:36 → 3A 16:46
PROVIDERS: ADMIT Internal Medicine; ATTEND Family Medicine
PROC: 30233N1 Transfusion of Nonautologous Red Blood Cells into Peripheral Vein, Percutaneous Approach (ICD-10-PCS; 2019-04-03)
PROC: 30233K1 Transfusion of Nonautologous Frozen Plasma into Peripheral Vein, Percutaneous Approach (ICD-10-PCS; principal; 2019-04-04)
DX: K92.2 Gastrointestinal hemorrhage, unspecified (principal); D62 Acute posthemorrhagic anemia; I50.40 Unspecified combined systolic (congestive) and diastolic (congestive) heart failure; E03.9 Hypothyroidism, unspecified; E78.2 Mixed hyperlipidemia; E11.9 Type 2 diabetes mellitus without complications; M32.9 Systemic lupus erythematosus, unspecified; J44.9 Chronic obstructive pulmonary disease, unspecified; K74.60 Unspecified cirrhosis of liver; I11.0 Hypertensive heart disease with heart failure; K21.9 Gastro-esophageal reflux disease without esophagitis; I25.10 Atherosclerotic heart disease of native coronary artery without angina pectoris; G47.33 Obstructive sleep apnea (adult) (pediatric); E66.9 Obesity, unspecified; M19.90 Unspecified osteoarthritis, unspecified site; Z82.49 Family history of ischemic heart disease and other diseases of the circulatory system; Z79.4 Long term (current) use of insulin; I25.2 Old myocardial infarction; Z79.899 Other long term (current) drug therapy; Z79.82 Long term (current) use of aspirin; Z95.5 Presence of coronary angioplasty implant and graft; Z95.810 Presence of automatic (implantable) cardiac defibrillator; Z68.38 Body mass index [BMI] 38.0-38.9, adult; Z88.2 Allergy status to sulfonamides
CPT/HCPCS: 36415; 74174; 80048; 80053; 80076; 82962; 83036; 85014; 85018; 85025; 85610; 85730; 86850; 86900; 86901; 86920; 94640; 94760; 96374; 96375; G0378; J1644; J1815; J2270; J2405; J7030; J7040; P9016; P9017; Q9967

== ENCOUNTER 2020-03-18 09:12 | Outpatient (CLI) | payer MEDICARE ==
--- NOTE | 2020-03-18 11:05 | Mammography Report ---
DIGITAL SCREENING MAMMOGRAM WITH CAD, 03/18/2020 INDICATION: Routine screening mammography. TECHNIQUE: Digital bilateral 2D mammography was obtained in the craniocaudal and mediolateral obliq ue projections. This examination was interpreted with the benefit of Computer-Aided Detection analysi s. COMPARISON: 01/27/2018. FINDINGS: Breast Density: There are scattered areas of fibroglandular density. There is no evidence of dominant mass, suspicious calcifications or architectural distortion in eithe r breast. IMPRESSION: Follow up recommendation: Routine yearly BI-RADS Category 1: Negative. A "normal" or negative report should not discourage follow up or biopsy of a clinically significant f inding. A written summary of these findings will be mailed to the patient. The patient will be entered into a mammography reporting system which will generate a reminder letter for the patient's next appointmen t at the appropriate interval. The [employer] recommends yearly mammograms starting at age 40 and continuing as l bg as a woman is in good health. Breast MRI is recommended for women with an approximate 20-25% or greater lifetime risk of breast cancer, including women with a strong family history of breast or ova pierce cancer or who have been treated for Hodgkin's disease. Signer Name: True Hernandez MD Signed: 03/18/2020 11:01 AM Workstation Name: [id number]
== END 2020-03-18 09:13 | disposition home or self-care (01) ==
LOC: MAMMO 09:12
PROVIDERS: ATTEND Internal Medicine
DX: Z12.31 Encounter for screening mammogram for malignant neoplasm of breast (principal)
CPT/HCPCS: 77067

== ENCOUNTER 2020-09-02 08:48 | Emergency (ER) | payer MEDICARE ==
--- NOTE | 2020-09-02 09:24 | Event Note ---
ED Screening Note Date of service: 09/02/20 Time: 09:23 ED Screening Note: Patient complains of sudden onset of lower abdominal pain radiating to her left flank area Denies urinary symptoms History of diabetes, hypertension, heart disease This initial assessment/diagnostic orders/clinical plan/treatment(s) is/are subject to change based on patients health status, clinical progression and re- assessment by fellow clinical providers in the ED. Further treatment and workup at subsequent clinical providers discretion. Patient/guardian urged not to elope from the ED as their condition may be serious if not clinically assessed and managed. Initial orders include: Labs
[2020-09-02 09:25] VITALS: BP 147/74
[2020-09-02 10:27] LABS: Basophils % (Auto) 0.6 % (0.0-1.8); Eosinophils # (Auto) 0.1 K/mm3 (0.0-0.4); Eosinophils % (Auto) 0.9 % (0.0-4.3); Hemoglobin 11.4 gm/dl (10.1-14.3); Lymphocytes # (Auto) 0.9 K/mm3 (1.2-5.4); Lymphocytes % (Auto) 13.8 % (13.4-35.0); Mean Corpuscular HGB Conc 34 % (30-34); Mean Corpuscular Volume 92 fl (79-97); Monocytes # (Auto) 0.8 K/mm3 (0.0-0.8); Monocytes % (Auto) 11.3 % (0.0-7.3); Platelet Count 116 K/mm3 (140-440); Red Blood Count 3.69 M/mm3 (3.65-5.03); Red Cell Distribution Width 16.1 % (13.2-15.2)
[2020-09-02 10:48] LABS: Alanine Aminotransferase 6 units/L (7-56); Albumin 3.6 g/dL (3.9-5); BUN/Creatinine Ratio 17; Blood Urea Nitrogen 19 mg/dL (7-17); Calcium 8.2 mg/dL (8.4-10.2); Hemolysis Index 0
[2020-09-02 10:59] LABS: Bilirubin,Urine NEG (Negative); Blood,Urine NEG (Negative); Color,Urine Yellow (Yellow); Protein,Urine <15 mg/dL mg/dL (Negative)
== END 2020-09-02 13:05 | disposition left against medical advice (07) ==
LOC: ED 08:48
DX: M54.9 Dorsalgia, unspecified (principal); Z53.21 Procedure and treatment not carried out due to patient leaving prior to being seen by health care provider
CPT/HCPCS: 36415; 80053; 81001; 83690; 85025; 87086

== ENCOUNTER 2021-11-28 19:16 | Emergency (ER) | payer MEDICARE ==
[2021-11-28 20:27] VITALS: BP 129/72
== END 2021-11-29 08:59 | disposition left against medical advice (07) ==
LOC: ED 19:16
DX: R10.9 Unspecified abdominal pain (principal); Z53.21 Procedure and treatment not carried out due to patient leaving prior to being seen by health care provider